=== PATIENT | female | born 1930 | race Caucasian/White ===

== ENCOUNTER → 2017-04-06 | Outpatient (CLI) | payer MEDICARE, OTHER ==
[~2017-04-06] MED LIST: ACETAMINOPHEN PO; AUGMENTIN PO; CALTRATE 600+D PO; CERTAGEN PO; DARVOCET-N 1001 TAB PO; DEXILANT30 MG PO; LEVAQUIN750 MG PO; LISINOPRIL-HCTZ1 T15 PO; NEXIUM PO; SERTRALINE HCL50 M1 PO; SIMVASTATIN40 MG PO; ZESTORETIC PO; ZOCOR PO; ZOLOFT PO; [UNRECOGNIZED DRUG - REMARK] PO
--- NOTE | ~2017-04-06 | MY29 ---
[facility] A Service of [facility] RADIOLOGY TEXT RESULTS PATIENT: LOY SHEFFIELD LOCATION: [facility] : 32 UNIT #: [id number] AGE: [address]: Maia Leon DO SEX: F ORDER DR: [id number] [facility] [address] [place], [place] [address] [id number] O MR#: [id number] Acc #: [id number] NAME: LOY SHEFFIELD : 1930 SEX: F STUDY DATE/TIME: 04/06/2017 15:29 UNIT: [facility] ROOM: STUDY DESCRIPTION: MY BENJAMIN SCREENING W/ CAD BILAT Attending Physician: Maia Leon D.O. Referring Physician: Maia Leon D.O. Ordering Physician: Maia Leon D.O. Primary Care Physician: Maia Leon D.O. MEDICAL IMAGING REPORT This report is preliminary unless electronic signature is present EXAM Digital screening mammogram 04/06/2017 HISTORY 86-year-old woman, positive family history, cousin. Annual screening. COMPARISON STUDIES Comparison mammograms 07/25/2010. FINDINGS Digital imaging of each breast was completed utilizing screening protocol. Review includes FDA-approved CAD device. There is moderate residual dense breast parenchyma in each breast with subareolar duct prominence, occasional benign calcifications, along with vascular calcifications. I see no suspicious mass characteristics. There are no interval occurring microcalcifications and no suspicious architectural deformity. IMPRESSION Stable benign mammogram. Annual screening recommended. BIRADS: 2 Benign Finding. Patients over the age of 40 are entered into a reminder system with target due date for the next mammogram. A result letter will also be sent to the patient. Dictated by... Ap Byrd M.D. THIS IS AN ELECTRONICALLY VERIFIED REPORT Ap Byrd M.D. at 04/09/2017 7:58 AM [facility] A Service of [facility] RADIOLOGY TEXT RESULTS PATIENT: LOY SHEFFIELD LOCATION: [facility] : 32 UNIT #: [id number] AGE: [address]: Maia Leon DO SEX: F ORDER DR: TELMA/sumaya TD: 04/06/2017 19:57 JOB #: [id number] MEDICAL IMAGING REPORT Page 1 of 1 COPY
== END | disposition home or self-care (01) ==
LOC: CWCC 15:11
DX: Z12.31 Encounter for screening mammogram for malignant neoplasm of breast (principal); Z80.3 Family history of malignant neoplasm of breast
CPT/HCPCS: G0202